=== PATIENT | female | born 1940 | race Caucasian/White ===

== ENCOUNTER 2017-09-21 17:47 | Observation (INO) ==
[2017-09-21] MEDS ORDERED: Sodium Chlor 0.9% Inj 500 ML IV.SIG ONE (18:10)
--- NOTE | 2017-09-21 18:30 | XR ---
EXAM DATE: 09/21/2017 6:25 PM EDT AGE/SEX: 76 years / Female INDICATIONS: Shortness of breath and nausea. CLINICAL DATA: This is the patient's initial encounter. Patient reports that signs and symptoms have been present for 1 day and indicates a pain score of 0/10. MEDICAL/SURGICAL HISTORY: None. None. COMPARISON: [facility], XR CHEST PA AND LAT, 04/29/2015. . FINDINGS: A single AP view of the chest demonstrates the lungs to be symmetrically aerated without evidence of mass, infiltrate or effusion. The cardiomediastinal contours are unremarkable. Osseous structures a re intact. CONCLUSION: No acute cardiopulmonary disease demonstrated. Electronically signed by: Joby Rivers MD 09/21/2017 6:29 PM EDT
--- NOTE | 2017-09-21 18:54 | CT ---
EXAM DATE: 09/21/2017 6:32 PM EDT AGE/SEX: 76 years / Female INDICATIONS: Dizziness. Nausea. Vomiting. CLINICAL DATA: This is the patient's initial encounter. Patient reports that signs and symptoms have been present for 1 day and indicates a pain score of 0/10. MEDICAL/SURGICAL HISTORY: Hypertension. None. RADIATION DOSE: 49.21 CTDI (mGy) COMPARISON: [facility], MR HEAD W/O CONTRAST, 09/21/2017. . TECHNIQUE: CT of the head without contrast. Using automated exposure control and adjustment of the mA and/or kV according to patient size, radiation dose was kept as low as reasonably achievable to ob tain optimal diagnostic quality images. DICOM format image data is available electronically for revi ew and comparison. FINDINGS: Cerebrum: The ventricles are normal for age. No evidence of midline shift, mass lesion, hemorrhage or acute infarction. No extraaxial fluid collections are seen. Chronic appearing low-attenuation see n in the periventricular white matter of both cerebral hemispheres. Posterior Fossa: The cerebellum and brainstem are intact. The 4th ventricle is midline. The cerebe llopontine angle is unremarkable. Extracranial: The visualized portion of the orbits is intact. Skull: The calvaria is intact. No evidence of skull fracture. CONCLUSION: 1. No acute intracranial abnormality. 2. Chronic white matter changes. . Electronically signed by: Joby Rivers MD 09/21/2017 6:52 PM EDT
[2017-09-21 18:59] LABS: Baso % (Auto) 0.4 % (0.0-2.0); Eos % (Auto) 0.2 % (0.0-4.0); Hematocrit 38.9 % (35.0-46.0); Hemoglobin 13.3 gm/dL (11.6-15.3); Lymph # (Auto) 0.4 th/mm3 (1.0-4.8); Lymph % (Auto) 6.5 % (9.0-44.0); Mean Corpuscular Hemoglobin 30.2 pg (27.0-34.0); Mean Corpuscular Volume 88.8 fL (80.0-100.0); Mean Platelet Volume 7.6 fL (7.0-11.0); Mono # (Auto) 0.2 th/mm3 (0.0-0.9); Mono % (Auto) 3.4 % (0.0-8.0); Neut # (Auto) 5.2 th/mm3 (1.8-7.7); Neut % (Auto) 89.5 % (16.0-70.0); Platelet Count 213 th/mm3 (150-450); Red Blood Count 4.39 mil/mm3 (4.00-5.30); Red Cell Distribution Width 13.1 % (11.6-17.2); White Blood Count 5.8 th/mm3 (4.0-11.0)
--- NOTE | 2017-09-21 19:04 | ED ---
HPI General Chief complaint: Abdominal Pain Stated complaint: Vomiting/Nausea/Dizziness Time Seen by Provider: 09/21/17 18:02 History of Present Illness HPI narrative: Patient is a 76 year old female presents to the ER with fairly sudden onset vertiginous symptoms. Patient states is she has never had history of vertigo before. States she been very wobbly on her feet and is thrown up a few times accompanied with some minimal belly aching. No fevers no cough no congestion no history of blood thinner use. No history of stroke or heart attack in the past. She is coming by her friend who states that the patient never complains of for her to come up here is a rarity. Symptoms moderate, constant, for the past 6 hours. Not associated with any focalized weakness. Not relieved with rest. Related Data Home Medications Medication Instructions Recorded Confirmed calcium carbonate-vitamin D3 1 tab PO DAILY 09/21/17 09/21/17 [Calcium 500 + D] folic acid 1 mg PO DAILY 09/21/17 09/21/17 levothyroxine 50 mcg PO DAILY 09/21/17 09/21/17 methotrexate sodium 10 mg PO QWEEK 09/21/17 09/21/17 Previous Rx's Medication Instructions Recorded amlodipine 5 mg PO DAILY 30 Days #60 tab 09/22/17 aspirin [Aspir-81] 81 mg PO DAILY 30 Days #30 tab 09/22/17 Allergies Allergy/AdvReac Type Severity Reaction Status Date / Time No Known Allergies Allergy Unverified 09/21/17 17:54 Review of Systems ROS: all other systems reviewed are negative [facility] Medical History Medical History Hypertension (Acute) Hypothyroid (Acute) Rheumatoid arthritis (Acute) Surgical History Surgical History No history of previous surgery (Acute) Family History Family History Other No pertinent family history Social History Social History Substance History: No History of Abuse Second Hand Smoke Exposure: No Smoking Status: Never smoker How Often Do You Have a Drink Containing Alcohol: Never Recent Travel in [facility] within the Last 8 Weeks: No Recent Out of Country Travel within the Last 8 Weeks: No Immunization History Tetanus Immunization: Unsure Hx Influenza Vaccine This Season: No Exam Narrative Exam Narrative: GENERAL: Well-developed well-nourished patient in moderate discomfort holding an emesis bag. SKIN: Focused skin assessment warm/dry. HEAD: Atraumatic. Normocephalic. EYES: Pupils equal and round. No scleral icterus. No injection or drainage. ENT: No nasal bleeding or discharge. Mucous membranes pink and moist. NECK: Trachea midline. No JVD. CARDIOVASCULAR: Regular rate and rhythm. No murmur appreciated. RESPIRATORY: No accessory muscle use. Clear to auscultation. Breath sounds equal bilaterally. GASTROINTESTINAL: Abdomen soft, non-tender, nondistended. Hepatic and splenic margins not palpable. MUSCULOSKELETAL: No obvious deformities. No clubbing. No cyanosis. No edema. NEUROLOGICAL: Alert and awake and oriented, nervous, cranial nerves II through XII are grossly intact and nonfocal, there is 5 out of 5 strength in all 4 extremities, cerebellar testing with heel gutierrez tests his balance coordination even bilaterally, [id number] testing on the left is brisk without any tremor or intentional ataxia, on the right there is some ataxia with forward pointing but there is no past pointing, this is a fatigable effect the patient contributed to shivering being cold in the room. PSYCHIATRIC: Appropriate mood and affect; insight and judgment normal. Course Initial Documented Vital Signs Temperature 97.5 F L 09/21/17 17:54 Pulse Rate 59 L 09/21/17 17:54 Respiratory Rate 32 H 09/21/17 17:54 Blood Pressure 169/88 H 09/21/17 17:54 Pulse Oximetry 100 09/21/17 17:54 Last Documented Vital Signs Temperature 97.8 F 09/22/17 08:00 Pulse Rate 56 L 09/22/17 08:00 Respiratory Rate 17 09/22/17 08:00 Blood Pressure 135/76 09/22/17 08:00 Pulse Oximetry 99 09/22/17 08:00 Medical Decision Making MDM Narrative Medical decision making narrative: Patient room to the emergency department, she appears uncomfortable but certainly nontoxic. Neurologic exam only significant for some tremor in the right upper extremity which was a fatigable effect it may be because the room is cold. Given her age and no history of vertiginous symptoms in the past I recommended an MRI for her and she is agreeable, CT head negative, blood work is pending. Patient discussed with Dr. Jacques at 1900 shift change. Accepted in transfer of care from Dr. Bliss for follow-up of MR studies of the brain At 9:50 PM MR of the brain and MRI of the brain show no acute process chronic white matter change; patient is only mildly .clinically improved; patient is not stable for outpatient management management at this time as remains very nauseated, vomiting and vertiginous. Patient also noted to be hypertensive. Patient will be given Zofran and antihypertensive. Patient remains symptomatic discussed case with on-call medicine for observation admission. Discussed with Dr Ramirez. Differential Diagnosis Differential Diagnosis: Cerebellar stroke, vertigo, electrolyte abnormality, anemia, intracranial hemorrhage, intrarenal mass peer Lab Data Result diagrams: 09/22/17 05:20 09/22/17 05:20 Lab Results 09/21/17 09/21/17 09/21/17 Range/Units 18:35 18:35 18:35 CBC w Diff Auto diff final WBC 5.8 (4.0-11.0) th/mm3 RBC 4.39 (4.00-5.30) mil/mm3 Hgb 13.3 (11.6-15.3) gm/dL Hct 38.9 (35.0-46.0) % MCV 88.8 (80.0-100.0) fL MCH 30.2 (27.0-34.0) pg MCHC 34.0 (32.0-36.0) % RDW 13.1 (11.6-17.2) % Plt Count 213 (150-450) th/mm3 MPV 7.6 (7.0-11.0) fL Neut % (Auto) 89.5 H (16.0-70.0) % Lymph % (Auto) 6.5 L (9.0-44.0) % Hinds % (Auto) 3.4 (0.0-8.0) % Eos % (Auto) 0.2 (0.0-4.0) % Baso % (Auto) 0.4 (0.0-2.0) % Neut # (Auto) 5.2 (1.8-7.7) th/mm3 Lymph # (Auto) 0.4 L (1.0-4.8) th/mm3 Hinds # (Auto) 0.2 (0.0-0.9) th/mm3 Eos # (Auto) 0.0 (0.0-0.4) th/mm3 Baso # (Auto) 0.0 (0.0-0.2) th/mm3 WBC Differential . Differential Comment . PT 10.0 (9.8-11.6) sec INR 1.0 Ratio APTT 25.3 (24.3-30.1) sec Sodium 135 L (136-145) meq/L Potassium 3.4 L (3.5-5.1) meq/L Chloride 99 (98-107) meq/L Carbon Dioxide 25.9 (21.0-32.0) meq/L Anion Gap 10 (5-15) meq/L BUN 11 (7-18) mg/dL Creatinine 0.97 (0.50-1.00) mg/dL Estimated GFR 56 L (>89) mL/min Random Glucose 118 H (74-106) mg/dL Calcium 9.0 (8.5-10.1) mg/dL Total Bilirubin 0.8 (0.2-1.0) mg/dL AST 28 (15-37) U/L ALT 20 (10-53) U/L Alkaline Phosphatase 84 (45-117) U/L Troponin I Less than 0.02 L (0.02-0.05) ng/mL Total Protein 8.1 (6.4-8.2) g/dL Albumin 4.1 (3.4-5.0) g/dL Lipase 142 (73-393) U/L 09/22/17 09/22/17 Range/Units 05:20 05:20 CBC w Diff Auto diff final WBC 4.6 (4.0-11.0) th/mm3 RBC 4.15 (4.00-5.30) mil/mm3 Hgb 12.4 (11.6-15.3) gm/dL Hct 37.5 (35.0-46.0) % MCV 90.3 (80.0-100.0) fL MCH 29.8 (27.0-34.0) pg MCHC 33.0 (32.0-36.0) % RDW 13.3 (11.6-17.2) % Plt Count 213 (150-450) th/mm3 MPV 7.7 (7.0-11.0) fL Neut % (Auto) 81.7 H (16.0-70.0) % Lymph % (Auto) 10.6 (9.0-44.0) % Hinds % (Auto) 7.0 (0.0-8.0) % Eos % (Auto) 0.1 (0.0-4.0) % Baso % (Auto) 0.6 (0.0-2.0) % Neut # (Auto) 3.8 (1.8-7.7) th/mm3 Lymph # (Auto) 0.5 L (1.0-4.8) th/mm3 Hinds # (Auto) 0.3 (0.0-0.9) th/mm3 Eos # (Auto) 0.0 (0.0-0.4) th/mm3 Baso # (Auto) 0.0 (0.0-0.2) th/mm3 WBC Differential . Differential Comment . PT (9.8-11.6) sec INR Ratio APTT (24.3-30.1) sec Sodium 137 (136-145) meq/L Potassium 3.8 (3.5-5.1) meq/L Chloride 102 (98-107) meq/L Carbon Dioxide 27.3 (21.0-32.0) meq/L Anion Gap 8 (5-15) meq/L BUN 12 (7-18) mg/dL Creatinine 0.77 (0.50-1.00) mg/dL Estimated GFR 73 L (>89) mL/min Random Glucose 85 (74-106) mg/dL Calcium 8.6 (8.5-10.1) mg/dL Total Bilirubin (0.2-1.0) mg/dL AST (15-37) U/L ALT (10-53) U/L Alkaline Phosphatase (45-117) U/L Troponin I (0.02-0.05) ng/mL Total Protein (6.4-8.2) g/dL Albumin (3.4-5.0) g/dL Lipase (73-393) U/L Imaging Data Radiologist's impression: Chest X-Ray 09/21/17 18:09 CONCLUSION: No acute cardiopulmonary disease demonstrated. Head MRI 09/21/17 18:10 CONCLUSION: 1. No acute infarct or other acute intracranial abnormality. 2. Severe chronic white matter changes. Head MRA 09/21/17 18:10 CONCLUSION: Diffuse intracranial atherosclerosis without an acute occlusive event. No aneurysm.. Head CT 09/21/17 18:11 CONCLUSION: 1. No acute intracranial abnormality. 2. Chronic white matter changes. . Discharge Plan Discharge Disposition Patient Disposition: 30 Still Patient Discharge Condition Condition: Stable Discharge Order Discharge Orders: Discharge Order (Routine); Ordered 09/22/17 Ordered By: Aida Fitzpatrick Discharge Details Anticipated Discharge Date: 09/22/17 Diagnosis: Dizziness, HTN (hypertension) Physicians Team ED Provider: Linda Jacques Primary Care Provider: Paula Machado Attending Provider: Elysia Ruiz Status ED Status: Left Department Discharge Information Discharge Date/Time: 09/22/17 01:00
[2017-09-21 19:17] LABS: Chloride 99 meq/L (98-107); Potassium 3.4 meq/L (3.5-5.1); Sodium 135 meq/L (136-145)
[2017-09-21 19:21] LABS: Albumin 4.1 g/dL (3.4-5.0); Anion Gap 10 meq/L (5-15); Carbon Dioxide 25.9 meq/L (21.0-32.0); Glucose,Random 118 mg/dL (74-106); Lipase 142 U/L (73-393)
[2017-09-21 19:22] LABS: Blood Urea Nitrogen 11 mg/dL (7-18)
[2017-09-21 19:23] LABS: Activated Partial Thrombo Time 25.3 sec (24.3-30.1)
[2017-09-21 19:24] LABS: Alanine Aminotransferase 20 U/L (10-53); Aspartate Aminotransferase 28 U/L (15-37); Glomerular Filtration Rate 56 mL/min (>89)
[2017-09-21 19:26] LABS: Total Protein 8.1 g/dL (6.4-8.2)
[2017-09-21 19:27] LABS: Alkaline Phosphatase 84 U/L (45-117)
--- NOTE | 2017-09-21 20:21 | MR ---
EXAM DATE: 09/21/2017 8:14 PM EDT AGE/SEX: 76 years / Female INDICATIONS: Vertigo. CVA. CLINICAL DATA: This is the patient's initial encounter. Patient reports that signs and symptoms have been present for 1 day and indicates a pain score of 0/10. MEDICAL/SURGICAL HISTORY: Hypertension. None. COMPARISON: . TECHNIQUE: 3D [id number] MRA was performed. Source images, multiplanar STS MIP, and 3D volum e MIP reconstructions were reviewed. FINDINGS: There is diffuse luminal irregularity of the intracranial arteries, especially the middle cerebral ar teries and right worse than left consistent with intracranial atherosclerotic disease. No acute throm bosis or acute appearing stenotic disease. No aneurysm demonstrated. CONCLUSION: Diffuse intracranial atherosclerosis without an acute occlusive event. No aneurysm.. Electronically signed by: Joby Rivers MD 09/21/2017 8:20 PM EDT
--- NOTE | 2017-09-21 20:30 | MR ---
EXAM DATE: 09/21/2017 8:20 PM EDT AGE/SEX: 76 years / Female INDICATIONS: Vertigo. CVA. CLINICAL DATA: This is the patient's initial encounter. Patient reports that signs and symptoms have been present for 1 day and indicates a pain score of 0/10. MEDICAL/SURGICAL HISTORY: Hypertension. None. COMPARISON: [facility], CT HEAD W/O CONTRAST, 09/21/2017. . TECHNIQUE: Multiplanar, multisequence examination of the brain was performed without contrast. FINDINGS: Cerebrum: The ventricles are normal for age. No evidence of midline shift, mass lesion, hemorrhage or acute infarction. No extraaxial fluid collections are seen. The pituitary gland and suprasellar cistern are normal in configuration. White Matter: Severe, symmetric chronic FLAIR signal abnormality seen in the periventricular and rasheeda p white matter of both cerebral hemispheres. Posterior Fossa: The cerebellum and brainstem are intact. The 4th ventricle is midline. The cerebel lopontine angle is unremarkable. The cerebellar tonsils are normal in position. Diffusion Imaging: No focal areas of restricted diffusion are seen. No evidence of acute infarction . Extracranial: The visualized portions of the orbits and paranasal sinuses are unremarkable. CONCLUSION: 1. No acute infarct or other acute intracranial abnormality. 2. Severe chronic white matter changes. Electronically signed by: Joby Rivers MD 09/21/2017 8:29 PM EDT
--- NOTE | 2017-09-21 21:53 | ECG ---
Date Performed: 09/21/2017 Time Performed: 19:01:04 PTAGE: 76 years EKG: SINUS BRADYCARDIA BORDERLINE ECG NO PREVIOUS TRACING DOCTOR: Vitaly Crawford Interpretating Date/Time 09/21/2017 21:52:26
[2017-09-21] MEDS ORDERED: hydrALAZINE HCl Inj 20 MG/ML Vial IV.PUSH ONE (22:00)
[2017-09-21] MEDS ORDERED: Acetaminophen 325 MG Tablet PO PRN (22:10)
[2017-09-21] MEDS ORDERED: Bisacodyl 10 MG Supp RECTAL PRN (22:10)
[2017-09-21] MEDS ORDERED: Temazepam 15 MG Capsule PO PRN (22:10)
[2017-09-21] MEDS: Sod Chloride 0.9% Inj 1,000 ML IV.CONT SCH (22:36)
[2017-09-22 06:30] LABS: Baso % (Auto) 0.6 % (0.0-2.0); Eos % (Auto) 0.1 % (0.0-4.0); Hematocrit 37.5 % (35.0-46.0); Hemoglobin 12.4 gm/dL (11.6-15.3); Lymph # (Auto) 0.5 th/mm3 (1.0-4.8); Lymph % (Auto) 10.6 % (9.0-44.0); Mean Corpuscular Hemoglobin 29.8 pg (27.0-34.0); Mean Corpuscular Volume 90.3 fL (80.0-100.0); Mean Platelet Volume 7.7 fL (7.0-11.0); Mono # (Auto) 0.3 th/mm3 (0.0-0.9); Neut # (Auto) 3.8 th/mm3 (1.8-7.7); Neut % (Auto) 81.7 % (16.0-70.0); Platelet Count 213 th/mm3 (150-450); Red Blood Count 4.15 mil/mm3 (4.00-5.30); Red Cell Distribution Width 13.3 % (11.6-17.2); White Blood Count 4.6 th/mm3 (4.0-11.0)
[2017-09-22 06:43] LABS: Potassium 3.8 meq/L (3.5-5.1)
[2017-09-22 06:51] LABS: Calcium 8.6 mg/dL (8.5-10.1); Carbon Dioxide 27.3 meq/L (21.0-32.0)
[2017-09-22] MEDS ORDERED: Heparin - SQ 10,000 UNITS/ML Vial SQ SCH (09:00)
[2017-09-22] MEDS ORDERED: Senna/Docusate Sodium 8.6/50 MG Tablet PO SCH (09:00)
--- NOTE | 2017-09-22 10:28 | P.HP ---
History of Present Illness Primary Care Physician: Paula Machado MD Chief Complaint: Vertigo History of Present Illness: This is a pleasant 76-year-old female patient with a known medical history of hypertension, hypothyroidism who presented to the ED with sudden onset of vertigo. Patient states that yesterday afternoon around 1300 she was sitting in her chair watching TV and suddenly became nauseous, went to the bathroom and she was walking to the bathroom she was very off balance. Patient states she has never had these type of symptoms before. She does state that her blood pressure was reportedly elevated at home, upon presentation her systolic was in the 200s. Patient denies any recent illness including fever, chills, cough, abdominal pain, diarrhea or dysuria. She does state that she has been eating and drinking well with no problems. Patient follows with PCP, last seen several months ago with no new changes to her medications. Patient was given a 500 mL bolus in ED. Started on IV fluids. Chest x-ray was negative upon presentation. EKG showing sinus bradycardia. No arrhythmias overnight. Head CT was negative. MRI was negative. MRA showing some atherosclerosis with no acute event or ischemia. Patient does state that her PCP follows with her cholesterol levels, states that her LDL might be slightly high although her high HDL offsets that she has never been prescribed statin before. Patient lives at home with her who is demented. - Diagnosis (1) Dizziness (2) HTN (hypertension) Review of Systems All other systems reviewed negative except as stated in HPI [facility] - History History Provided By: Patient - Medical History Medical History: Medical History (Last Reviewed 09/22/17 @ 08:10 by Christian Ross) Hypertension Hypothyroid Rheumatoid arthritis - Surgical History Surgical History: Surgical History (Last Updated 09/22/17 @ 11:36 by Aida Fitzpatrick) No history of previous surgery - Family History Family History: Family History (Last Updated 09/22/17 @ 11:36 by Aida Fitzpatrick) Other No pertinent family history - Tobacco History Second Hand Smoke Exposure: No Smoking Status: Never smoker - Alcohol History How Often Do You Have a Drink Containing Alcohol: Never - Substance Use History Substance History: No History of Abuse - Travel History Recent Travel in the [place] Within the Last 8 Weeks: No Recent Travel Out of the Country Within the Last 8 Weeks: No - Immunization History Tetanus Immunization: Unsure Hx Influenza Vaccine This Season: No Medications and Allergies Active Medications: Active Medications Acetaminophen (Tylenol) 650 mg PO Q4H PRN PRN Reason: Temp > 100.4 Al Hydroxide/Mg Hydroxide (Milk Of Magnesia Liq) 30 ml PO Q12H PRN PRN Reason: Mild Constipation Bisacodyl (Dulcolax Supp) 10 mg RECTAL DAILY PRN PRN Reason: SEVERE CONSITIPATION Heparin Sodium (Porcine) (Heparin Inj) 5,000 units SQ Q12HR [facility] Sodium Chloride (Ns Inj) 1,000 mls @ 100 mls/hr IV.CONT .Q10H [facility] Last Admin: 09/21/17 22:36 Dose: 100 mls/hr Lactulose (Lactulose Liq) 30 ml PO DAILY PRN PRN Reason: SEVERE CONSITIPATION Meclizine HCl (Antivert) 25 mg PO Q8H PRN PRN Reason: vertigo Ondansetron HCl (Zofran Inj) 4 mg IV.PUSH Q6H PRN PRN Reason: NAUSEA OR VOMITING Prochlorperazine Edisylate (Compazine Inj) 10 mg IV.PUSH Q6H PRN PRN Reason: N/V not relieved with zofran Senna/Docusate Sodium (Brianda-Colace) 1 tab PO BID [facility] Sennosides (Senokot) 17.2 mg PO Q12H PRN PRN Reason: Moderate Constipation Sodium Chloride (Ns Flush) 2 ml IV.FLUSH UNSCH PRN PRN Reason: FLUSH AFTER USING IV ACCESS Last Admin: 09/21/17 22:08 Dose: 2 ml Temazepam (Restoril) 15 mg PO HS PRN PRN Reason: INSOMNIA Allergies Allergy/AdvReac Type Severity Reaction Status Date / Time No Known Allergies Allergy Unverified 09/21/17 17:54 Home Medications Medication Instructions Recorded Confirmed Type calcium carbonate-vitamin D3 1 tab PO DAILY 09/21/17 09/21/17 History [Calcium 500 + D] folic acid 1 mg PO DAILY 09/21/17 09/21/17 History levothyroxine 50 mcg PO DAILY 09/21/17 09/21/17 History methotrexate sodium 10 mg PO QWEEK 09/21/17 09/21/17 History Exam Vital signs: Vital Signs 09/21/17 17:54 09/21/17 18:20 09/21/17 20:41 Temperature 97.5 F L Pulse Rate 59 L 55 L 52 L Respiratory Rate 32 H 18 18 Blood Pressure 169/88 H 199/103 H 185/81 H Pulse Oximetry 100 99 97 09/21/17 21:29 09/21/17 22:11 09/21/17 23:41 Temperature Pulse Rate 53 L 55 L Respiratory Rate 18 20 Blood Pressure 230/113 H 179/97 H Pulse Oximetry 97 99 98 09/22/17 00:44 09/22/17 01:22 09/22/17 04:27 Temperature 96.1 F L 96.6 F L Pulse Rate 55 L 53 L 50 L Respiratory Rate 20 18 18 Blood Pressure 179/94 H 187/91 H 160/86 H Pulse Oximetry 98 98 09/22/17 07:35 Temperature Pulse Rate Respiratory Rate Blood Pressure Pulse Oximetry 98 Intake & Output 09/21/17 09/22/17 09/22/17 18:59 06:59 18:59 Intake Total 500 / 500 Balance 500 / 500 Weight 78.1 kg 53.5 kg Intake: IV 500 / 500 NS Inj 500 ML @ Wide Open IV. 500 / 500 SIG BOLUS ONE Rx#:[id number] Oral 0 / 0 Other: # Voids 0 Date of Last Bowel Movement 09/21/17 Weight On Admission 119 kg Narrative: GENERAL: Well-developed, well-nourished patient in [facility]. SKIN: Warm and dry. No rash. HEAD: Normocephalic. Atraumatic. EYES: Pupils equal and round. No scleral icterus. No injection or drainage. ENT: No nasal bleeding or discharge. Mucous membranes pink and moist. NECK: Supple. Trachea midline. CARDIOVASCULAR: Regular rate and rhythm. S1, S2 noted. No murmur appreciated. RESPIRATORY: No accessory muscle use. Clear to auscultation. Breath sounds equal bilaterally. GASTROINTESTINAL: Abdomen soft, non-tender, nondistended. Normoactive bowel sounds x4. MUSCULOSKELETAL: No obvious deformities. Extremities without clubbing, cyanosis , or edema. NEUROLOGICAL: Awake and alert. No obvious cranial nerve deficits. Motor grossly within normal limits. 5/5 muscle strength in bilateral upper and lower extremities. Normal speech. PSYCHIATRIC: Appropriate mood and affect; insight and judgment normal. Results - Labs CBC & Chem 7: 09/22/17 05:20 09/22/17 05:20 Labs: Laboratory Results - last 24 hr 09/21/17 09/21/17 09/21/17 18:35 18:35 18:35 CBC w Diff Auto diff final WBC 5.8 RBC 4.39 Hgb 13.3 Hct 38.9 MCV 88.8 MCH 30.2 MCHC 34.0 RDW 13.1 Plt Count 213 MPV 7.6 Neut % (Auto) 89.5 H Lymph % (Auto) 6.5 L [place] % (Auto) 3.4 Eos % (Auto) 0.2 Baso % (Auto) 0.4 Neut # (Auto) 5.2 Lymph # (Auto) 0.4 L [place] # (Auto) 0.2 Eos # (Auto) 0.0 Baso # (Auto) 0.0 WBC Differential . Differential Comment . PT 10.0 INR 1.0 APTT 25.3 Sodium 135 L Potassium 3.4 L Chloride 99 Carbon Dioxide 25.9 Anion Gap 10 BUN 11 Creatinine 0.97 Estimated GFR 56 L Random Glucose 118 H Calcium 9.0 Total Bilirubin 0.8 AST 28 ALT 20 Alkaline Phosphatase 84 Troponin I Less than 0.02 L Total Protein 8.1 Albumin 4.1 Lipase 142 09/22/17 09/22/17 05:20 05:20 CBC w Diff Auto diff final WBC 4.6 RBC 4.15 Hgb 12.4 Hct 37.5 MCV 90.3 MCH 29.8 MCHC 33.0 RDW 13.3 Plt Count 213 MPV 7.7 Neut % (Auto) 81.7 H Lymph % (Auto) 10.6 [place] % (Auto) 7.0 Eos % (Auto) 0.1 Baso % (Auto) 0.6 Neut # (Auto) 3.8 Lymph # (Auto) 0.5 L [place] # (Auto) 0.3 Eos # (Auto) 0.0 Baso # (Auto) 0.0 WBC Differential . Differential Comment . PT INR APTT Sodium 137 Potassium 3.8 Chloride 102 Carbon Dioxide 27.3 Anion Gap 8 BUN 12 Creatinine 0.77 Estimated GFR 73 L Random Glucose 85 Calcium 8.6 Total Bilirubin AST ALT Alkaline Phosphatase Troponin I Total Protein Albumin Lipase - Imaging Impressions Chest X-Ray 09/21/17 18:09 CONCLUSION: No acute cardiopulmonary disease demonstrated. Head MRI 09/21/17 18:10 CONCLUSION: 1. No acute infarct or other acute intracranial abnormality. 2. Severe chronic white matter changes. Head MRA 09/21/17 18:10 CONCLUSION: Diffuse intracranial atherosclerosis without an acute occlusive event. No aneurysm.. Head CT 09/21/17 18:11 CONCLUSION: 1. No acute intracranial abnormality. 2. Chronic white matter changes. . Caprini VTE Risk Assessment Caprini VTE Risk Assessment: Moderate/High Risk (score >= 2) Caprini Risk Assessment Model: Point Value = 1 Point Value = 2 Point Value = 3 Point Value = 5 Age 41-60 Minor surgery BMI > 25 kg/m2 Swollen legs Varicose veins or History of unexplained or recurrent spontaneous Oral contraceptives or hormone replacement Sepsis (< 1 month) Serious lung disease, including pneumonia (< 1 month) Abnormal pulmonary function Acute myocardial infarction Congestive heart failure (< 1 month) History of inflammatory bowel disease Medical patient at bed rest Age 61-74 Arthroscopic surgery Major open surgery (> 45 min) Laparoscopic surgery (> 45 min) Malignancy Confined to bed (> 72 hours) Immobilizing plaster cast Central venous access Age >= 75 History of VTE Family history of VTE Factor V Leiden Prothrombin [id number] Lupus anticoagulant Anticardiolipin antibodies Elevated serum homocysteine Heparin-induced thrombocytopenia Other congenital or acquired thrombophilia Stroke (< 1 month) Elective arthroplasty Hip, pelvis, or leg fracture Acute spinal cord injury (< 1 month) Prophylaxis Regimen: Total Risk Factor Score Risk Level Prophylaxis Regimen 0-1 Low Early ambulation 2 Moderate Order ONE of the following: *Sequential Compression Device (SCD) *Heparin 5000 units SQ BID 3-4 Higher Order ONE of the following medications: *Heparin 5000 units SQ TID *Enoxaparin/Lovenox 40 mg SQ daily (WT < 150 kg, CrCl > 30 mL/min) *Enoxaparin/Lovenox 30 mg SQ daily (WT < 150 kg, CrCl > 10-29 mL/min) *Enoxaparin/Lovenox 30 mg SQ BID (WT < 150 kg, CrCl > 30 mL/min) AND/OR *Sequential Compression Device (SCD) 5 or more Highest Order ONE of the following medications: *Heparin 5000 units SQ TID (Preferred with Epidurals) *Enoxaparin/Lovenox 40 mg SQ daily (WT < 150 kg, CrCl > 30 mL/min) *Enoxaparin/Lovenox 30 mg SQ daily (WT < 150 kg, CrCl > 10-29 mL/min) *Enoxaparin/Lovenox 30 mg SQ BID (WT < 150 kg, CrCl > 30 mL/min) AND *Sequential Compression Device (SCD) Assessment and Plan - Assessment (1) Dizziness Code(s): R42 - Dizziness and giddiness Status: Acute (2) HTN (hypertension) Code(s): I10 - Essential (primary) hypertension Status: Acute - Plan This is a 76-year-old female patient with: Vertigo. Resolved. Generalized weakness with associated nausea and vomiting -Head CT on presentation reviewed and shows no acute events. MRI ordered which is negative. MRA showing some atherosclerosis with no acute event or ischemia. -Chest x-ray negative upon presentation. -Patient placed on cardiac telemetry, no arrhythmias overnight. EKG showing sinus bradycardia with no ST changes. -All symptoms have resolved. -PT was consulted, appreciate input recommendations. No further need for PT at this time. -Patient has been tolerating p.o. intake without any abdominal pain, nausea or vomiting. She states she feels much improved. -Spoke to patient regarding her cholesterol. She states that her PCP follows closely with her and has not prescribed a statin. Advised that patient follow up with PCP and review of MRA to possible be placed on a statin. Patient states that she is hesitant to take anything for her cholesterol, and would like to make lifestyle changes. She is a very active female and is motivated. Uncontrolled hypertension. Resolved. -Systolic presentation of the 200s. Has improved overnight. Will increase home amlodipine to 5 mg p.o. daily. -Patient encouraged to keep a blood pressure diary over the next week before she meets with her PCP. Patient is agreeable. Patient will be discharged home to follow-up with PCP. Heart healthy diet as tolerated. Activity no restrictions. Prescriptions per discharge. (2) HTN (hypertension) Qualifiers: Hypertension type: essential hypertension Qualified Code(s): I10 - Essential (primary) hypertension
[2017-09-22 10:31] VITALS: BP 135/76; PULSE 56; RESP 17; TEMP 97.8; O2SAT 99
[2017-09-22] MEDS: Sod Chloride 0.9% Inj 1,000 ML IV.CONT SCH (11:55)
== END 2017-09-22 13:05 | disposition home or self-care (01) ==
LOC: PHED 17:47 → PH3 17:47 → PHEDA 17:47 → PH3 09-22 00:55
PROVIDERS: ADMIT Hospitalist; ATTEND Hospitalist
DX: I10 Essential (primary) hypertension; R94.31 Abnormal electrocardiogram [ECG] [EKG]; E03.9 Hypothyroidism, unspecified; R42 Dizziness and giddiness; R53.1 Weakness; M06.9 Rheumatoid arthritis, unspecified